=== PATIENT | male | born 1965 | race Two or more races ===

== ENCOUNTER 2019-10-29 13:06 | Outpatient (CLI) | payer OTHER | END 2019-10-29 13:10 | disposition home or self-care (01) | LOC: LAB 13:06 | DX: N20.0 Calculus of kidney (principal) ==

== ENCOUNTER 2019-11-01 07:15 | Outpatient (CLI) | payer OTHER | END 2019-11-01 08:00 | disposition home or self-care (01) | LOC: TOM 07:15 | DX: J44.1 Chronic obstructive pulmonary disease with (acute) exacerbation (principal); M54.11 Radiculopathy, occipito-atlanto-axial region; M54.12 Radiculopathy, cervical region ==

== ENCOUNTER 2021-03-28 07:16 | Outpatient (CLI) | payer OTHER | END 2021-03-28 07:18 | disposition home or self-care (01) | LOC: NUCLEAR 07:16 | PROVIDERS: ATTEND Urology | DX: N28.89 Other specified disorders of kidney and ureter (principal); R07.89 Other chest pain | CPT/HCPCS: 78452; 93017; A9500; J0153 ==

== ENCOUNTER 2021-05-02 09:49 | Outpatient (CLI) | payer OTHER | END 2021-05-02 09:50 | disposition home or self-care (01) | LOC: NUCLEAR 09:49 | PROVIDERS: ATTEND General Practice | DX: I65.23 Occlusion and stenosis of bilateral carotid arteries (principal); N28.89 Other specified disorders of kidney and ureter ==

== ENCOUNTER 2024-10-12 18:13 | Emergency (ER) | payer OTHER ==
[~2024-10-12] VITALS: Ht 177.8 cm; Wt 81.6 kg
[2024-10-12] MEDS ORDERED: METFORMIN HCL500 M4 PO (18:51)
[2024-10-12] MEDS ORDERED: LOSARTAN POTASS50 MG PO (18:51)
[2024-10-12] MEDS ORDERED: NORVASC10 MG PO (18:51)
[2024-10-12] MEDS ORDERED: ACETAMINOPHEN 500 MG GEL..CAP PO ONE ×2 (20:30→20:45)
[2024-10-12] MEDS ORDERED: ONDANSETRON HCL 2 MG/ML VIAL IV ONE (20:30)
[2024-10-12] MEDS ORDERED: ONDANSETRON HCL 2 MG/ML VIAL ONE (20:45)
[2024-10-12] MEDS ORDERED: BENZONATATE 100 MG CAPSULE PO ONE (20:45)
[2024-10-12] MEDS ORDERED: FAMOtidine 20 MG TABLET PO ONE (21:30)
[2024-10-12 21:37] LABS: HEMATOCRIT 44.3 % (39.0-48.0); HEMOGLOBIN 15.4 g/dL (13-16.00); MEAN CELL VOLUME 96.9 fL (80.0-100.00); MEAN CORPUSCULAR HEMOGLOBIN 33.7 pg (27.00-32.0); MEAN CORPUSCULAR HGB CONC 34.8 g/dl (32.0-36.0); PLATELET COUNT 139 K/uL (150-450); RED BLOOD COUNT 4.58 M/uL (4.00-6.00); RED CELL DISTRIBUTION WIDTH 12.6 % (11.5-14.5)
[2024-10-12 21:54] LABS: CALCIUM 9.8 mg/dL (8.5-10.1); CREATININE SERUM 1.31 mg/dL (0.70-1.30); GFR 55.63; POTASSIUM 4.69 mEq/L (3.5-5.1)
[2024-10-12] MEDS ORDERED: BENZONATATE200 M1 PO (23:17)
[2024-10-12] MEDS ORDERED: OSEL75CA PO (23:17)
[2024-10-12] MEDS ORDERED: INTESTINEX680 M2 PO (23:17)
[2024-10-12] MEDS ORDERED: PEPCID AC20 MG PO (23:17)
[2024-10-13] MEDS ORDERED: FAMOTIDINE/PF 20 MG/2 ML VIAL IV PUSH SCH (09:00)
== END 2024-10-13 01:31 | disposition home or self-care (01) ==
LOC: ER 18:15
PROVIDERS: General Practice
DX: J10.1 Influenza due to other identified influenza virus with other respiratory manifestations (principal); Z21 Asymptomatic human immunodeficiency virus [HIV] infection status; I10 Essential (primary) hypertension; Z85.528 Personal history of other malignant neoplasm of kidney; Z20.822 Contact with and (suspected) exposure to COVID-19; E11.9 Type 2 diabetes mellitus without complications
CPT/HCPCS: 36415; 96372; 99282; J2405